=== PATIENT | female | born 1955 ===

== ENCOUNTER 2021-08-30 16:11 | Emergency (ER) | payer SELFPAY ==
[2021-08-30 17:07] LABS: RED BLOOD COUNT 4.28 M/UL (4.00-5.10); WHITE BLOOD COUNT 7.3 K/UL (4.5-11.0)
== END 2021-08-30 18:29 | disposition left against medical advice (07) ==
LOC: ER1 16:11
PROVIDERS: Emergency Medicine
DX: Z53.21 Procedure and treatment not carried out due to patient leaving prior to being seen by health care provider (principal)
CPT/HCPCS: 71045; 80053; 82550; 82553; 84484; 85025; 93005